=== PATIENT | male | born 1970 | race African-American/Black ===

== ENCOUNTER → 2016-04-17 | Outpatient (CLI) | payer OTHER ==
--- NOTE | 2016-04-17 13:25 | DI ---
LEFT ANKLE, 04/17/2016 10:16 AM: Clinical History: Left ankle pain. Previous Exam: None at this facility. 3 views are submitted. There is no acute soft tissue, osseous, or joint abnormality. Reading: Normal left ankle exam.
--- NOTE | 2016-04-17 13:27 | DI ---
LEFT FOOT, 04/17/2016 10:16 AM: Clinical History: Left foot pain. Previous Exam: None at this facility. 3 weightbearing views are submitted. There is no acute soft tissue, osseous, or joint abnormality. Reading: Normal left foot exam.
--- NOTE | 2016-04-17 13:28 | DI ---
RIGHT FOOT, 04/17/2016 10:16 AM: Clinical History: Hallux limitus of the right foot area Previous Exam: None at this facility. 3 weightbearing views are submitted. There is no acute soft tissue, osseous, or joint abnormality. Reading: Normal right foot exam.
== END ==
LOC: MOB RAD 10:36
PROVIDERS: ATTEND Podiatrist Foot & Ankle Surgery
DX: M79.672 Pain in left foot (principal); M25.572 Pain in left ankle and joints of left foot; M79.671 Pain in right foot; M76.822 Posterior tibial tendinitis, left leg; M21.42 Flat foot [pes planus] (acquired), left foot; M20.5X1 Other deformities of toe(s) (acquired), right foot; M21.41 Flat foot [pes planus] (acquired), right foot
CPT/HCPCS: 73610; 73630

== ENCOUNTER 2016-05-27 11:21 | Emergency (ER) | payer OTHER ==
[2016-05-27 12:24] LABS: BASOPHILS # (AUTO) 0.03 10*3/UL; BASOPHILS % (AUTO) 0.2 % (0-1); EOSINOPHILS # (AUTO) 0.01 10*3/UL; EOSINOPHILS % (AUTO) 0.1 % (0-8); HEMATOCRIT 45.8 % (42.0-52.0); HEMOGLOBIN 15.1 g/dL (14.0-18.0); LYMPHOCYTES # (AUTO) 1.99 10*3/uL; MEAN CORPUSCULAR HEMOGLOBIN 29.6 PG (27-31); MONOCYTES # (AUTO) 2.24 10*3/UL (0.3-0.8); MONOCYTES % (AUTO) 13.4 % (5-15); NEUTROPHILS # (AUTO) 12.31 10*3/UL; NEUTROPHILS % (AUTO) 73.9 % (50-80)
[2016-05-27 12:28] LABS: BILIRUBIN,URINE SMALL (NEG); CLARITY,URINE CLEAR (CLEAR); COLOR,URINE YELLOW; GLUCOSE, URINE (UA) NEGATIVE (NEG); NITRATE,URINE NEGATIVE (NEG); OCCULT BLOOD,URINE SMALL (NEG); PH,URINE 5.5 (5.0-8.5); PROTEIN,URINE 30 mg/dl (NEG)
[2016-05-27 12:35] LABS: PLATELET MORPHOLOGY COMMENT NORMAL MORPHOLOGY (NORM); RBC MORPHOLOGY COMMENT NORMAL MORPHOLOGY (NORM); WBC MORPHOLOGY COMMENT NORMAL MORPHOLOGY (NORM)
[2016-05-27 12:41] LABS: BLOOD UREA NITROGEN 21 mg/dL (7-22); CALCIUM 9.3 mg/dL (8.7-10.7); EST GLOMERULAR FILTRATION > 60 (>60 ml/min/1.73m(2)); SERUM ALBUMIN 4.3 g/dL (3.5-4.8)
[2016-05-27 12:46] LABS: URINE SAMPLE TYPE CLEAN CATCH URINE
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
[2016-05-27 15:03] VITALS: RESP 17; TEMP 97.8
== END 2016-05-27 13:55 | disposition short-term general hospital (02) ==
LOC: ER 11:21
DX: N48.30 Priapism, unspecified (principal)
CPT/HCPCS: 36415; 80053; 81001; 85025; 85660; 99282

== ENCOUNTER → 2016-06-11 | Outpatient (CLI) | payer OTHER ==
[2016-06-11 07:33] LABS: BLOOD UREA NITROGEN 17 mg/dL (7-22); BUN/CREATININE RATIO 18.88 (6-20); CALCIUM 9.4 mg/dL (8.7-10.7); EST GLOMERULAR FILTRATION > 60 (>60 ml/min/1.73m(2))
== END ==
LOC: LAB 06:48
PROVIDERS: ATTEND Physician Assistant
DX: Z79.899 Other long term (current) drug therapy (principal)
CPT/HCPCS: 36415; 80053

== ENCOUNTER 2016-07-29 11:38 | Emergency (ER) | payer OTHER ==
[2016-07-29 12:11] LABS: BILIRUBIN,URINE NEGATIVE (NEG); COLOR,URINE YELLOW; GLUCOSE, URINE (UA) NEGATIVE (NEG); NITRATE,URINE NEGATIVE (NEG); OCCULT BLOOD,URINE SMALL (NEG); PH,URINE 6.5 (5.0-8.5); PROTEIN,URINE NEGATIVE (NEG)
[2016-07-29 12:12] LABS: BASOPHILS # (AUTO) 0.07 10*3/UL; BASOPHILS % (AUTO) 1.2 % (0-1); EOSINOPHILS # (AUTO) 0.02 10*3/UL; EOSINOPHILS % (AUTO) 0.3 % (0-8); HEMATOCRIT 51.4 % (42.0-52.0); HEMOGLOBIN 16.8 g/dL (14.0-18.0); LYMPHOCYTES # (AUTO) 2.39 10*3/uL; MEAN CORPUSCULAR HEMOGLOBIN 29.5 PG (27-31); MEAN CORPUSCULAR HGB CONC 32.7 g/dL (33-37); MEAN CORPUSCULAR VOLUME 90.2 FL (80-90); MEAN PLATELET VOLUME 8.8 FL (7.4-12.2); MONOCYTES # (AUTO) 0.77 10*3/UL (0.3-0.8); MONOCYTES % (AUTO) 12.7 % (5-15); NEUTROPHILS # (AUTO) 2.73 10*3/UL; NEUTROPHILS % (AUTO) 45.2 % (50-80); PLATELET MORPHOLOGY COMMENT NORMAL MORPHOLOGY (NORM); RBC MORPHOLOGY COMMENT NORMAL MORPHOLOGY (NORM); WBC MORPHOLOGY COMMENT NORMAL MORPHOLOGY (NORM)
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
[2016-07-29 12:36] LABS: CLARITY,URINE CLEAR (CLEAR)
[2016-07-29 12:37] LABS: AMPHETAMINE SCREEN NEGATIVE (NEG); CANNABINOID SCREEN,URINE NEGATIVE (NEG); COCAINE SCREEN NEGATIVE (NEG); METHADONE URINE SCREEN NEGATIVE (NEG); METHAMPHETAMINES SCREEN,URINE NEGATIVE (NEG); OPIATE SCREEN,URINE NEGATIVE (NEG); SQUAMOUS EPITHELIAL CELL,UR FEW; URINE SAMPLE TYPE CLEAN CATCH URINE; URINE SPECIFIC GRAVITY - MAN 1.015
[2016-07-29 15:25] VITALS: RESP 16; TEMP 96.8
[2016-07-29 15:44] LABS: BLOOD UREA NITROGEN 15 mg/dL (7-22); BUN/CREATININE RATIO 16.66 (6-20); CALCIUM 9.3 mg/dL (8.7-10.7); EST GLOMERULAR FILTRATION > 60 (>60 ml/min/1.73m(2))
[2016-07-29 15:46] LABS: SALICYLATE < 1 mg/dl (0-20)
[2016-07-29 15:48] LABS: SERUM ALBUMIN 4.3 g/dL (3.5-4.8)
== END 2016-07-29 15:16 ==
LOC: ER 11:38
DX: F23 Brief psychotic disorder (principal); F20.0 Paranoid schizophrenia; F22 Delusional disorders; R45.1 Restlessness and agitation
CPT/HCPCS: 36415; 80053; 80164; 80305; 80320; 80329; 81001; 81003; 84443; 85025; 90791; 99283

== ENCOUNTER → 2016-09-26 | Outpatient (CLI) | payer OTHER ==
--- NOTE | 2016-09-27 12:20 | DI ---
LEFT KNEE, 09/26/2016 11:38 AM: Clinical History: Bilateral knee pain. Previous Exam: None at this facility. 4 views are submitted. The AP and tunnel projections are weight bearing views. There is no acute soft tissue, osseous, or joint abnormality. Moderate joint space narrowing is present in the medial beau rtment indicating degenerative arthritic disease. Reading: Degenerative arthritis of the medial compartment.
--- NOTE | 2016-09-27 12:25 | DI ---
RIGHT KNEE, 09/26/2016 11:38 AM: Clinical History: Bilateral knee pain. Previous Exam: None at this facility. 4 views are submitted. The AP and tunnel projections are weight bearing views. There is no acute osse ous or joint abnormality. A small joint effusion is present. There is a mild genu varum deformity. Th ere is moderately severe narrowing of the medial compartment indicating degenerative arthritic diseas e. Readin. Small joint effusion with moderately severe degenerative arthritic change of the medial compartme nt. 2. Genu varum deformity.
== END ==
LOC: ORTHO 11:55
PROVIDERS: ATTEND Orthopaedic Surgery
DX: M25.562 Pain in left knee (principal); M25.561 Pain in right knee; M25.462 Effusion, left knee; M25.461 Effusion, right knee; M17.0 Bilateral primary osteoarthritis of knee
CPT/HCPCS: 73564